=== PATIENT | male | born 1950 | race Caucasian/White ===

== ENCOUNTER 2017-08-19 06:17 | Observation (INO) | payer MEDICARE, OTHER ==
[2017-08-19 06:57] LABS: #Basophils 0.1 thou/uL (0.0-0.2); #Monocytes 0.6 thou/uL (0.11-0.59); #Neutrophils 4.3 thou/uL (1.40-6.50); %Basophils 1.2 % (0.0-1.0); %Eosinophils 13.1 % (0.0-10.0); %Lymphocytes 24.9 % (21.0-51.0); Hematocrit 44.8 % (42.0-52.0); Mean Platelet Volume 7.1 fL (7.4-10.4); Red Blood Cell (RBC) Count 4.83 mill/uL (4.70-6.10); White Blood Cell (WBC) Count 7.9 thou/uL (4.8-10.8)
[2017-08-19 07:03] LABS: Prothrombin Time 12.7 SEC (12.0-14.7)
[2017-08-19 07:19] LABS: ALT (SGPT) 21 U/L (8-55); AST (SGOT) 14 U/L (5-34); Alkaline Phosphatase 75 U/L (40-150); Anion Gap 13 mmol/L (10-20); BUN (Urea Nitrogen) 17 mg/dL (8.4-25.7); Bilirubin, Total 0.4 mg/dL (0.2-1.2); Calc. Creatinine Clearance 101 mL/min (70-130); Calcium 8.8 mg/dL (7.8-10.44); Carbon Dioxide 23 mmol/L (23-31); Chloride 105 mmol/L (98-107); Cholesterol 208 mg/dl (< 200 Desired); Estimated GFR-MDRD 81; Globulin 2.9 g/dL (2.4-3.5); LDL Cholesterol, Calculated 142 mg/dL; Protein, Total 6.5 g/dL (5.8-8.1)
[2017-08-19] MEDS ORDERED: Nitroglycerin 100MG/250ML BOT 250 ML ONE (08:19)
[2017-08-19] MEDS ORDERED: Heparin 10,000 UNITS/1 ML VIAL ONE (08:19)
[2017-08-19] MEDS ORDERED: Midazolam HCl 2 mg/2 ml Vial ONE (08:42)
[2017-08-19] MEDS ORDERED: Fentanyl 100 MCG/2 ML VIAL ONE (08:43)
[2017-08-19] MEDS ORDERED: hydrALAZINE 20 MG/ML VIAL ONE (09:24)
[2017-08-19 14:31] VITALS: BMI 29.1
[2017-08-19 15:22] LABS: #Eosinphils 0.2 thou/uL (0.0-0.7); #Monocytes 0.7 thou/uL (0.11-0.59); #Neutrophils 10.1 thou/uL (1.40-6.50); %Basophils 0.3 % (0.0-1.0); %Eosinophils 2.1 % (0.0-10.0); %Lymphocytes 8.2 % (21.0-51.0); %Monocytes 5.6 % (0.0-10.0); Hematocrit 49.4 % (42.0-52.0); Mean Platelet Volume 8.4 fL (7.4-10.4); Red Blood Cell (RBC) Count 5.22 mill/uL (4.70-6.10)
[2017-08-19 15:56] LABS: ALT (SGPT) 24 U/L (8-55); AST (SGOT) 25 U/L (5-34); Alkaline Phosphatase 74 U/L (40-150); Anion Gap 15 mmol/L (10-20); BUN (Urea Nitrogen) 14 mg/dL (8.4-25.7); Bilirubin, Total 0.4 mg/dL (0.2-1.2); Calc. Creatinine Clearance 111 mL/min (70-130); Calcium 8.8 mg/dL (7.8-10.44); Carbon Dioxide 19 mmol/L (23-31); Chloride 106 mmol/L (98-107); Estimated GFR-MDRD Greater than 90; Globulin 3.4 g/dL (2.4-3.5); Protein, Total 6.9 g/dL (5.8-8.1)
[2017-08-19] MEDS ORDERED: PROVENTIL INHALER 6.7 G (200 INHALATIONS) INH PRN (16:25)
[2017-08-19] MEDS ORDERED: Ibuprofen 200 MG TAB PO PRN (16:26)
[2017-08-19] MEDS ORDERED: Iopamidol 370 76% 50 ML VIAL FS ONE (16:49)
[2017-08-19] MEDS ORDERED: Iopamidol 370 76% 100 ML VIAL ONE (16:49)
[2017-08-19] MEDS: TICAGRELOR 90 MG TABLET PO SCH (20:31)
[2017-08-19] MEDS ORDERED: Atorvastatin Calcium 40 MG TAB PO SCH (21:00)
[2017-08-20 03:35] VITALS: TEMP 97.9
[2017-08-20 05:27] LABS: #Eosinphils 0.8 thou/uL (0.0-0.7); #Lymphocytes 1.8 thou/uL (1.20-3.40); #Monocytes 0.7 thou/uL (0.11-0.59); #Neutrophils 8.1 thou/uL (1.40-6.50); %Basophils 0.2 % (0.0-1.0); %Eosinophils 6.6 % (0.0-10.0); %Monocytes 6.4 % (0.0-10.0); Hematocrit 43.8 % (42.0-52.0); Mean Platelet Volume 7.1 fL (7.4-10.4); Red Blood Cell (RBC) Count 4.68 mill/uL (4.70-6.10); White Blood Cell (WBC) Count 11.5 thou/uL (4.8-10.8)
[2017-08-20 05:57] LABS: ALT (SGPT) 22 U/L (8-55); AST (SGOT) 13 U/L (5-34); Alkaline Phosphatase 68 U/L (40-150); Anion Gap 10 mmol/L (10-20); BUN (Urea Nitrogen) 13 mg/dL (8.4-25.7); Bilirubin, Total 0.7 mg/dL (0.2-1.2); Calc. Creatinine Clearance 105 mL/min (70-130); Calcium 8.8 mg/dL (7.8-10.44); Carbon Dioxide 25 mmol/L (23-31); Chloride 106 mmol/L (98-107); Estimated GFR-MDRD 88; Globulin 2.6 g/dL (2.4-3.5); Protein, Total 5.9 g/dL (5.8-8.1)
[2017-08-20] MEDS: TICAGRELOR 90 MG TABLET PO SCH (08:52)
[2017-08-20 11:25] VITALS: BP 145/76
--- NOTE | 2017-08-20 11:53 | DIS ---
DATE OF ADMISSION: 08/19/2017 DATE OF DISCHARGE: 08/20/2017 DISCHARGING PHYSICIAN: Kenny Martinez M.D. PRIMARY DIAGNOSES: 1. Coronary artery disease. 2. Vasovagal episodes. SUMMARY: Mr. Mcgee is a 67-year-old white gentleman who came to the hospital for an outpatient cornelius n heart catheterization and was found to have RCA disease and received stent to the RCA and/or PDA. He did well postoperatively, had an event of bradycardia and hypertension, this happened about 2 to 3 times, he got diaphoretic and felt presyncopal. He did not really pass out. Most likely he was having vasovagal episodes. He was observed overnight. He remained in sinus rhythm. Heart rate in the 60s, blood pressure in the 130s, doing just fine. He will be discharged home later today. DISCHARGE MEDICATIONS: Albuterol as outpatient. NEW MEDICATIONS: Include, 1. Aspirin 81 daily. 2. Brilinta 90 mg p.o. b.i.d. 3. Lipitor 40 mg p.o. at bedtime. 4. Beta rose and ISABELLA inhibitor were held because of bradycardia and hypertension yesterday. We will start some of these as an outpatient if blood pressure and heart rate allows. Over 30 minutes were spent at bedside counseling for discharge.
== END 2017-08-20 11:48 | disposition home or self-care (01) ==
LOC: CCL 06:17 → 2SW 12:38
PROVIDERS: ADMIT Internal Medicine Cardiovascular Disease; ATTEND Internal Medicine Cardiovascular Disease
DX: R94.39 Abnormal result of other cardiovascular function study (principal); I25.10 Atherosclerotic heart disease of native coronary artery without angina pectoris; R55 Syncope and collapse; Z79.82 Long term (current) use of aspirin; Z79.02 Long term (current) use of antithrombotics/antiplatelets; Z79.899 Other long term (current) drug therapy
CPT/HCPCS: 80053 ×3; 80061; 85025 ×3; 85347 ×2; 85610; 85730; 92928; 93005 ×3; 93458; 93798 ×2; C1725; C1769 ×2; C1876; C1887; G0378; 36415; 93010; 99152; 99153; A4216; J0360; J1644; J2250; J3010

== ENCOUNTER 2017-10-15 07:47 | Outpatient (CLI) | payer MEDICARE, OTHER ==
[2017-10-15 09:49] LABS: Hemoglobin 14.2 g/dL (14.0-18.0); Mean Corpuscular HGB CONC 32.8 g/dL (32.0-36.0); Mean Corpuscular Hemoglobin 30.9 pg (27.0-31.0); Mean Corpuscular Volume 94.3 fl (80.0-94.0); Mean Platelet Volume 7.1 fL (7.4-10.4); Platelet Count 215 thou/uL (130-400); RBC Distribution Width 12.2 % (11.5-14.5); Red Blood Cell (RBC) Count 4.59 mill/uL (4.70-6.10); White Blood Cell (WBC) Count 8.6 thou/uL (4.8-10.8)
[2017-10-15 10:25] LABS: Anion Gap 11 mmol/L (10-20); BUN (Urea Nitrogen) 16 mg/dL (8.4-25.7); Calc. Creatinine Clearance 0 mL/min (70-130); Calcium 9.6 mg/dL (7.8-10.44); Carbon Dioxide 29 mmol/L (23-31); Chloride 103 mmol/L (98-107); Estimated GFR-MDRD 83; Glucose 111 mg/dL (80-115); Potassium 4.1 mmol/L (3.5-5.1); Sodium 139 mmol/L (136-145)
== END 2017-10-15 07:48 | disposition home or self-care (01) ==
LOC: LABBT 07:47
PROVIDERS: ATTEND Neurological Surgery
DX: Z01.818 Encounter for other preprocedural examination (principal); M54.12 Radiculopathy, cervical region
CPT/HCPCS: 80048; 85027

== ENCOUNTER 2017-11-03 05:56 | Day surgery (SDC) | payer MEDICARE, OTHER ==
--- NOTE | 2017-10-21 15:37 | HP ---
HISTORY OF PRESENT ILLNESS: Mr. Mcgee is a 67-year-old man who is referred to us by Dr. Grace for ev aluation of left-sided numbness that fit a C5 pattern. He has a history from roughly 17 years ago wi th 2 level ACDF spanning C5-C7 and now looks to on an MRI scan from [place] to have developed a la rge disk osteophyte complex at C4-5 that encroached upon the spinal cord. He is here now to discuss possible treatment options. PAST MEDICAL HISTORY: Significant for neck and back problems, benign essential hypertension, gastroe sophageal reflux, TIAs, critical carotid stenosis, coronary arterial disease. CURRENT MEDICATIONS: Include Ventolin. ALLERGIES: No known drug allergies. PAST SURGICAL HISTORY: ACDF and carotid endarterectomy. PHYSICAL EXAMINATION: The patient is alert and oriented x3. Gait is normal, no ataxia. Upper extre mity motor exam is essentially normal, although he does have some minor paresthesias to the left arm and left leg. ASSESSMENT: Cervical radiculopathy. PLAN: Dr. Nair met with the patient, reviewed imaging and ultimately advocated for C4-5 ACDF revisi on. He explained to the patient the risks, benefits, and alternatives to the procedure. The patient expressed understanding and would like to move forward with surgery as discussed. The patient is me ntally competent and capable of making medical decisions for himself and we will move forward with bobo camacho as planned.
[2017-11-02 11:05] VITALS: BMI 29.6
--- NOTE | 2017-11-02 17:07 | HP ---
HISTORY OF PRESENT ILLNESS: Mr. Mcgee is a 67-year-old gentleman who was referred to us by Dr. Grace for evaluation of left-sided numbness with C5 pattern. He has a history of roughly 17 years ago wit h 2-level ACDF spanning C5-C7 and now looks to be on an MRI scan from [place] to have developed a large disk osteophyte complex at C4-5 and encroaches upon the spinal cord. He is here to discuss pos sible treatment options. PAST MEDICAL HISTORY: Neck and back problems, benign essential hypertension, gastroesophageal reflux , TIAs, critical carotid stenosis, and coronary arterial disease. CURRENT MEDICATIONS: Ventolin. ALLERGIES: No known drug allergies. PAST SURGICAL HISTORY: ACDF and carotid endarterectomy x2. PHYSICAL EXAMINATION: The patient is alert and oriented x3. Gait is normal, no ataxia. Upper extre mity motor exam is essentially normal, although he does have some minor paresthesias in the left arm and left leg. ASSESSMENT: Cervical radiculopathy. PLAN: Dr. Nair met with the patient, reviewed imaging and ultimately advocated to proceed C4-5 ACDF revision. He explained to the patient the risks, benefits, alternatives of the procedure. The violet ent expressed understanding and would like to move forward with surgery as discussed. I do believe t he patient is mentally competent and capable of making medical decisions for himself. We will move f orward with surgery as planned.
[2017-11-03] MEDS ORDERED: Midazolam HCl 2 mg/2 ml Vial ONE (06:08)
[2017-11-03] MEDS ORDERED: Fentanyl 100 MCG/2 ML VIAL ONE (06:08)
[2017-11-03] MEDS ORDERED: CEFAZOLIN/Water 2 GM/20 ML SYRINGE ONE ×3 (06:15→11:11)
[2017-11-03] MEDS ORDERED: Fentanyl 250 MCG/5 ML VIAL ONE (06:21)
[2017-11-03] MEDS ORDERED: Thrombin 5000 UNITS/5 ML VIAL ONE (06:40)
--- NOTE | 2017-11-03 09:08 | OP ---
DATE OF PROCEDURE: 11/03/2017 SURGEON: Dr. Khoa Nair SENIOR CYTOGENETIC TECHNOLOGIST: Yovany Orlando PA-C MACHINE OVERHAULER: Suman Sherwood was responsible for surgical exposure. INDICATION: Cervical stenosis with myelopathy and radiculopathy. PROCEDURE: Reoperation anterior cervical diskectomy and fusion C4-5. ANESTHESIA: General. TECHNIQUE: The patient was brought into the operating room and placed under general anesthesia. He was placed on the table in supine position. A transverse incision was planned over the lateral aspec t of the neck on the right. After prepping and draping and after appropriate operative pause, Dr. Cade response for exposure down to the prevertebral space which will be dictated in a separate operative note. After gaining access to the prevertebral space we went above a prior surgical site at C4-5. This was confirmed with C-arm fluoroscopy. An anterior cervical diskectomy and fusion was performed at C4-5. After removing anterior and posterior osteophytes as well as disk material, a 7 m m lordotic PEEK cage packed with allograft and autograft material was placed within the interbody spa ce. The wound was then irrigated. Hemostasis was maintained throughout. The wound was then closed in anatomic layers and a pressure dressing was applied. There were no known procedural complications .
[2017-11-03] MEDS ORDERED: Acetaminophen/Codeine 30-300mg Tablet ONE (11:15)
== END 2017-11-03 12:05 | disposition home or self-care (01) ==
LOC: SDC 05:56
PROVIDERS: ATTEND Neurological Surgery
PROC: 0RG10A0 Fusion of Cervical Vertebral Joint with Interbody Fusion Device, Anterior Approach, Anterior Column, Open Approach (ICD-10-PCS; principal; 2017-11-03)
PROC: 0RB30ZZ Excision of Cervical Vertebral Disc, Open Approach (ICD-10-PCS; 2017-11-03)
DX: M48.02 Spinal stenosis, cervical region (principal); M54.12 Radiculopathy, cervical region; Z98.1 Arthrodesis status; I10 Essential (primary) hypertension; K21.9 Gastro-esophageal reflux disease without esophagitis; I25.10 Atherosclerotic heart disease of native coronary artery without angina pectoris; Z86.73 Personal history of transient ischemic attack (TIA), and cerebral infarction without residual deficits; Z86.010 Personal history of colon polyps; Z80.8 Family history of malignant neoplasm of other organs or systems; Z79.51 Long term (current) use of inhaled steroids; Z79.02 Long term (current) use of antithrombotics/antiplatelets; Z79.899 Other long term (current) drug therapy; Z95.5 Presence of coronary angioplasty implant and graft; Z98.890 Other specified postprocedural states
CPT/HCPCS: 76001; J2250; J3010

== ENCOUNTER 2017-12-07 09:50 | Outpatient (CLI) | payer MEDICARE, OTHER ==
--- NOTE | 2017-12-07 12:22 | RAD ---
CERVICAL SPINE AP AND LATERAL: History: M54.12 cervical radiculopathy. Comparison: None. FINDINGS: Discectomy changes at C4-5 is satisfactory position. There is ACDF at C5-7 with satisfactory incorpor ation of bone. No acute fracture or malalignment. Mild facet arthropathy. Cervical clips in the neck bilaterally. IMPRESSION: 1. New disc spacer at C4-5 in good position. 2. Adequate osseous incorporation of bone of the ACDF. POS: [facility]
== END 2017-12-07 09:51 | disposition home or self-care (01) ==
LOC: TBSIIMAG 09:50
PROVIDERS: ATTEND Neurological Surgery
DX: M54.12 Radiculopathy, cervical region (principal); Z98.1 Arthrodesis status
CPT/HCPCS: 72040

== ENCOUNTER 2018-07-25 08:21 | Outpatient (CLI) | payer MEDICARE, OTHER ==
--- NOTE | 2018-07-25 09:52 | ULT ---
LIMITED RIGHT BREAST ULTRASOUND: DATE: 07/25/2018. PROVIDED CLINICAL HISTORY: Right breast palpable abnormality. FINDINGS: Limited sonographic interrogation of the right breast was performed in th region of palpable concern. Sonographic findings in the retroareolar region are compatible with gynecomastia. No evidence for focal mass. IMPRESSION: BI-RADS category 2 - benign findings. Mammographic and sonographic findings are compatible with righ t-sided gynecomastia. POS: [facility]
== END 2018-07-25 08:22 | disposition home or self-care (01) ==
LOC: BICMAMMO 08:21
PROVIDERS: ATTEND Family Medicine
DX: N63.10 Unspecified lump in the right breast, unspecified quadrant (principal)
CPT/HCPCS: 76642; 77066; G0279

== ENCOUNTER 2019-09-04 15:38 | Outpatient (CLI) | payer MEDICARE, OTHER ==
[2019-09-04 17:10] LABS: #Eosinphils 0.1 thou/uL (0.0-0.7); #Lymphocytes 2.3 thou/uL (1.20-3.40); #Monocytes 0.8 thou/uL (0.11-0.59); #Neutrophils 6.8 thou/uL (1.40-6.50); %Basophils 0.4 % (0.0-1.0); %Monocytes 7.7 % (0.0-10.0); %Neutrophils 67.8 % (42.0-75.0); Mean Corpuscular HGB CONC 32.8 g/dL (32.0-36.0); Mean Corpuscular Hemoglobin 30.5 pg (27.0-31.0); Mean Corpuscular Volume 93.1 fL (78.0-98.0); Mean Platelet Volume 8.2 fL (7.4-10.4); Platelet Count 214 thou/uL (130-400); RBC Distribution Width 11.5 % (11.5-14.5); Red Blood Cell (RBC) Count 4.58 mill/uL (4.70-6.10); White Blood Cell (WBC) Count 10.1 thou/uL (4.8-10.8)
[2019-09-04 17:50] LABS: ALT (SGPT) 33 U/L (8-55); AST (SGOT) 18 U/L (5-34); Alkaline Phosphatase 69 U/L (40-110); Anion Gap 9 mmol/L (10-20); BUN (Urea Nitrogen) 18 mg/dL (8.4-25.7); Bilirubin, Total 0.5 mg/dL (0.2-1.2); Calc. Creatinine Clearance 0 mL/min (70-130); Calcium 9.2 mg/dL (7.8-10.44); Carbon Dioxide 30 mmol/L (23-31); Chloride 107 mmol/L (98-107); Estimated GFR-MDRD 75; Globulin 2.7 g/dL (2.4-3.5); Glucose 78 mg/dL (80-115); Potassium 3.9 mmol/L (3.5-5.1); Protein, Total 6.7 g/dL (5.8-8.1); Sodium 142 mmol/L (136-145)
== END 2019-09-04 15:39 | disposition home or self-care (01) ==
LOC: LABBT 15:38
PROVIDERS: ATTEND Internal Medicine Cardiovascular Disease
DX: Z01.812 Encounter for preprocedural laboratory examination (principal); I25.10 Atherosclerotic heart disease of native coronary artery without angina pectoris
CPT/HCPCS: 80053; 85025

== ENCOUNTER 2019-09-06 06:09 | Day surgery (SDC) | payer MEDICARE, OTHER ==
[2019-09-04 16:01] VITALS: BMI 28.3
[2019-09-06] MEDS ORDERED: Lidocaine 1% (PF) 30 ML VIAL ONE (06:57)
[2019-09-06] MEDS ORDERED: Heparin (Artline) 1,000 ML ONE (06:57)
[2019-09-06 07:22] LABS: Cardiac Risk 2.8 (Less than 4.5)
[2019-09-06] MEDS ORDERED: Verapamil 5 MG/2 ML VIAL ONE (07:31)
[2019-09-06] MEDS ORDERED: Heparin 10,000 UNITS/1 ML VIAL ONE (07:31)
[2019-09-06] MEDS ORDERED: Nitroglycerin 100MG/250ML BOT 250 ML ONE (07:31)
[2019-09-06] MEDS ORDERED: Midazolam HCl 2 mg/2 ml Vial ONE (08:31)
[2019-09-06] MEDS ORDERED: Fentanyl 100 MCG/2 ML VIAL ONE (08:31)
== END 2019-09-06 12:53 | disposition home or self-care (01) ==
LOC: CCL 06:09
PROVIDERS: ATTEND Internal Medicine Cardiovascular Disease
PROC: 4A023N7 Measurement of Cardiac Sampling and Pressure, Left Heart, Percutaneous Approach (ICD-10-PCS; principal; 2019-09-06)
PROC: B2111ZZ Fluoroscopy of Multiple Coronary Arteries using Low Osmolar Contrast (ICD-10-PCS; 2019-09-06)
DX: I25.10 Atherosclerotic heart disease of native coronary artery without angina pectoris (principal); I25.82 Chronic total occlusion of coronary artery; I65.23 Occlusion and stenosis of bilateral carotid arteries; E78.5 Hyperlipidemia, unspecified; I10 Essential (primary) hypertension; I49.3 Ventricular premature depolarization; Z79.82 Long term (current) use of aspirin; Z79.899 Other long term (current) drug therapy; Z95.5 Presence of coronary angioplasty implant and graft
CPT/HCPCS: 80061; 93458; 99152; 99153; C1769; J1644; J2001; J2250; J3010

== ENCOUNTER 2021-09-10 08:01 | Outpatient (CLI) | payer MEDICARE, OTHER | END 2021-09-10 08:02 | disposition home or self-care (01) | LOC: SCSMRI 08:01 | PROVIDERS: ATTEND Family Medicine | DX: R20.0 Anesthesia of skin (principal); M51.86 Other intervertebral disc disorders, lumbar region; M48.061 Spinal stenosis, lumbar region without neurogenic claudication | CPT/HCPCS: 72148 ==

== ENCOUNTER 2023-06-30 09:12 | Outpatient (CLI) | payer MEDICARE, OTHER | END 2023-06-30 09:13 | disposition home or self-care (01) | LOC: SCSMRI 09:12 | PROVIDERS: ATTEND Orthopaedic Surgery | DX: M23.91 Unspecified internal derangement of right knee (principal); S83.231A Complex tear of medial meniscus, current injury, right knee, initial encounter; R60.0 Localized edema ==